=== PATIENT | female | born 1985 | race Caucasian/White ===

== ENCOUNTER 2017-09-22 16:13 | Emergency (ER) | payer SELFPAY ==
[~2017-09-22] VITALS: Ht 167.6 cm; Wt 108.9 kg
[~2017-09-22 16:13] MED LIST: DIFLUNISAL500 MG PO; ORPHENADRINE C100 MG PO; ULTRAM 50MG50 MG PO
[2017-09-22] MEDS ORDERED: KETOROLAC TROMETHAMINE 60 MG/2 ML VIAL IM NR (17:45)
[2017-09-22] MEDS ORDERED: HYDROCODONE/APAP 10MG-325MG TAB PO NR (18:00)
[2017-09-22] MEDS ORDERED: DIAZEPAM 2 MG TAB PO NR (18:00)
[2017-09-22] MEDS ORDERED: DEXAMETHASONE SOD PHOS 10 MG/1 ML VIAL INJ NR (18:00)
--- NOTE | 2017-09-22 20:21 | Diagnostic Imaging Report ---
EXAM: lumbar spine, 3 views, AP, lateral and coned lateral view INDICATION: Heart activity not PET the object 2 days ago COMPARISON: None FINDINGS: BONES: Five lumbar-type vertebral bodies. The alignment is within normal limits. No acute displaced fractures. No lytic or blastic lesions. DISCS: The disc-spaces are well-maintained. JOINTS: The facet joints and sacroiliac joints are unremarkable. SOFT TISSUES: Surgical clips right upper quadrant of the abdomen. IMPRESSION: No acute lumbar spine radiographic findings. Signed by: Dr. Caitlyn Jiménez M.D. on 09/22/2017 8:17 PM
== END 2017-09-22 20:19 | disposition home or self-care (01) ==
LOC: ER 16:13
DX: M54.5 Low back pain (principal)
CPT/HCPCS: 72100; 81025; 99283; J1100; J1885

== ENCOUNTER 2017-09-30 23:18 | Emergency (ER) | payer SELFPAY ==
[~2017-09-30] VITALS: Ht 167.6 cm; Wt 108.9 kg
--- OUTSIDE RECORDS SUMMARY | 2017-09-30 23:20 | XMS REPORT ---
[facility] Address Unknown Phone Unavailable Care Team Providers Care Deck Hand Name Role Phone MODESTA OCHOA Unavailable Unavailable Problems This patient has no known problems. Allergies, Adverse Reactions, Alerts This patient has no known allergies or adverse reactions. Medications This patient has no known medications. Results Test Description Test Time Test Comments Text Results Atomic Results Result Comments LUMBAR 3 VIEW [place] [address] Patient Name: JUANY ALFREDO MR #: [id number] : 1985 Age/Sex: 31/F Req #: [id number] Adm Physician: Ordered by: BENITO SALAZAR RN OFFICE Report #: [id number] Location: ER Room/Bed: Procedure: [id number] DX/LUMBAR 3 VIEW Exam Date: 09/22/17 Exam Time : 1900 REPORT STATUS: Signed EXAM: lumbar spine, 3 views, AP, lateral and coned lateral view INDICATION: Heart activity not PET the object 2 days ago COMPARISON: None FINDINGS: BONES: Five lumbar-type vertebral bodies. The alignment is within normal limits. No acute displaced fractures. No lytic or blastic lesions. DISCS: The disc-spaces are well -maintained. JOINTS: The facet joints and sacroiliac joints are unremarkable. SOFT TISSUES: Surgical clips right upper quadrant of the abdomen. IMPRESSION: No acute lumbar spine radiographic findings. Signed by: Dr. Jenifer Jiménez M.D. on 09/22/2017 8:17 PM Dictated By: JENIFER JIMÉNEZ MD 16 Transcribed By: KOLBY on 09/22/172016 COPY TO: BENITO SALAZAR NP
--- OUTSIDE RECORDS SUMMARY | 2017-09-30 23:20 | XMS REPORT | Continuity of Care Document ---
Author Author [facility] Organization [facility] Address [address] [place] [address] Phone Unavailable Care Team Providers Care Breast Surgeon Name Role Phone VERNON GONSALVES MD PCP Insurance Providers Guarantor Sujatha Alfredo Address [address] [place] [address] [facility] Policy Number [id number] Subscriber's Name Crystal Alfredo Relationship 18 Self / Same As Patient Group Number [id number] Group Name [employer], Advance Directives Directive Response Recorded Date/Time Does the patient have an advance directive? No 09/09/15 3:37am If yes, is advance directive on file with [facility]? No 09/09/15 3:37am If not on file with [facility] will patient provide a copy? No 09/09/15 3:37am Do you have a Directive to Physician? No 09/22/17 5:54pm Do you have a Medical Power of Operating Room Scheduler? No 09/22/17 5:54pm Do you have an out of hospital Do Not Resuscitate Order? No 09/22/17 5:54pm Do you have any special needs we should be aware of? No 09/22/17 5:54pm Do you have a support person here with you today? Yes 09/22/17 5:54pm Did patient receive Notice of Privacy Practices? Yes 09/22/17 5:54pm Did patient receive patient rights and responsibilities? Yes 09/22/17 5:54pm Problems No problem information available. Medications Current Home Medications Medication Dose Units Route Directions Days Qty Instructions Start Date Diflunisal (Dolobid) 500 Mg Tablet 500 Mg Oral Twice A Day Orphenadrine Citrate (Norflex) 100 Mg Tab 100 Mg Oral Twice A Day 30 Tab Tramadol Hcl (Ultram 50MG*) 50 Mg Tab 50 Mg Oral Every 6 Hours as needed for Pain Social History Smoking Status Start Date Stop Date Current every day smoker Hospital Discharge Instructions No hospital discharge instruction information available. Plan of Care Discharge Date 09/22/17 8:19pm Disposition HOME, SELF-CARE Condition at Discharge Stable Instructions/Education Provided Back Pain Forms Provided Work/School Excuse Prescriptions See Medication Section Referrals VERNON GONSALVES MD Address: [address] [facility] [address] [place] [address] YAAKOV NICOLAS MD Address: [address] [place] [address] [address] [place] [address] Additional Instructions/Education 1. follow up with orthopedic doctor in 1-2 days without fail 2. return to ed as needed 3. no lifting Functional Status No functional status information available. Allergies, Adverse Reactions, Alerts Allergen Type Severity Reaction Status Last Updated SULFA Allergy Intermediate Itching Active 09/09/15 Immunizations No immunization information available. Vital Signs Acute Vital Signs Vital Response Date/Time Height 5 ft 6 in 09/22/2017 4:45pm Weight 240 lb 09/22/2017 4:45pm Body Mass Index 38.7 kg/m^2 09/22/2017 4:45pm Results Laboratory Results Test Name Result Units Flags Reference Collection Date/Time Result Date/ Time Comments Urine Test NEGATIVE NEGATIVE 09/22/2017 6:26pm 09/22/2017 6 :51pm Procedures No procedure information available. Encounters Encounter Location Arrival/Admit Date Discharge/Depart Date Attending Provider Departed Emergency Room [facility] 09/22/17 4:13pm 8:19pm MODESTA OCHOA MD
[2017-09-30] MEDS ORDERED: CYCLOBENZAPRINE5 MG PO (23:27)
[2017-09-30] MEDS ORDERED: TYLENOL WITH C1 EACH PO (23:27)
[2017-09-30] MEDS ORDERED: IBUPROFEN400 MG PO (23:27)
== END 2017-09-30 23:44 | disposition left against medical advice (07) ==
LOC: ER 23:18
DX: M54.9 Dorsalgia, unspecified (principal)

== ENCOUNTER → 2020-07-07 | Outpatient (CLI) | payer OTHER ==
[~2020-07-07] MED LIST changes: +CYCLOBENZAPRINE5 MG PO; +IBUPROFEN400 MG PO; +TYLENOL WITH C1 EACH PO
== END ==
LOC: MRI 10:36
PROVIDERS: ATTEND Specialist
DX: S96.811A Strain of other specified muscles and tendons at ankle and foot level, right foot, initial encounter (principal)